=== PATIENT | male | born 1930 | race Caucasian/White ===

== ENCOUNTER 2019-06-18 01:40 | Emergency (ER) | payer MEDICARE, SELFPAY ==
[2019-06-18 02:54] LABS: CKMB 2.9 ng/mL (0-6.6)
== END 2019-06-18 03:35 | disposition short-term general hospital (02) ==
LOC: NAV ERS 01:40
DX: I50.1 Left ventricular failure, unspecified (principal); E87.1 Hypo-osmolality and hyponatremia; Z79.899 Other long term (current) drug therapy; Z79.82 Long term (current) use of aspirin
CPT/HCPCS: 82553; 84484; 94660; 94760; 96374; 99292

== ENCOUNTER 2019-06-21 16:43 | Inpatient (IN) | payer MEDICARE, OTHER ==
[2019-06-21] MEDS ORDERED: Mag-Al Plus 1200 MG/1200 MG/120 MG/30 ML UDCUP PO PRN (20:29)
[2019-06-21] MEDS ORDERED: Cepastat Lozenges 1 LOZ PO PRN (20:30)
[2019-06-21] MEDS ORDERED: Milk Of Magnesia 30 ML UDCUP PO PRN (20:33)
[2019-06-21] MEDS: Melatonin 3 MG TAB PO SCH (20:53)
[2019-06-21] MEDS: Simvastatin 40 MG TAB PO SCH (20:54)
[2019-06-21] MEDS: Metoprolol Tartrate 50 MG TAB PO SCH (20:54)
[2019-06-22] MEDS ORDERED: FLU VACC QS2019-20(6MOS UP)/PF 60 MCG/0.5 ML SYRINGE IM ONE (09:00)
[2019-06-22] MEDS: Aspirin 81 mg Enteric Coated Tablet PO SCH (09:03)
[2019-06-22] MEDS: Calcium Carbonate 500 MG TAB PO SCH (09:03)
[2019-06-22] MEDS: Clopidogrel Bisulfate 75 MG TAB PO SCH (09:03)
[2019-06-22] MEDS: Tamsulosin HCl 0.4 MG CAP PO SCH (09:03)
[2019-06-22] MEDS: Allopurinol 100 MG TAB PO SCH (09:03)
[2019-06-22] MEDS: Lactobacillus Rhamnosus (CULTURELLE) packet PO SCH (09:03)
[2019-06-22] MEDS: Metoprolol Tartrate 50 MG TAB PO SCH ×2 (09:03→20:12)
[2019-06-22] MEDS: Acetaminophen 500 MG TAB PO PRN (09:03)
[2019-06-22] MEDS: Simvastatin 40 MG TAB PO SCH (20:12)
[2019-06-22] MEDS: Melatonin 3 MG TAB PO SCH (20:12)
[2019-06-22] MEDS ORDERED: Ipratropium Bromide 2.5 ml Neb NEB PRN (20:36)
[2019-06-22] MEDS: Lorazepam 0.5 MG TAB PO PRN (21:54)
--- NOTE | 2019-06-23 03:02 | HP ---
HISTORY OF PRESENT ILLNESS: Mr. Andrew is a very pleasant 89-year-old white male, with history of coronary artery disease, status post CABG in 1999, he had a normal ejection fraction at that time. He also has a history of hypertension, chronic hyponatremia, and SIADH. Unfortunately, he fell and was admitted to [facility] for lumbar compression fracture and rhabdomyolysis. It stabilized and transferred to [facility]. He did not do very well there and was transferred back to [facility], was found to have significant GERD, which gave him chest pain. It was controlled with proton pump inhibitors and then he was transferred to [facility]. He was transferred here for physical therapy and occupational therapy to increase his strength and stamina. Prior to being discharged, he had a 2D echo with normal left ventricular systolic function, but the MRI revealed a significant compression fracture at L2. PAST MEDICAL HISTORY: 1. Coronary artery disease, status post CABG in 1999. 2. Gastroesophageal reflux disease. 3. Hyperlipidemia. 4. Hyperuricemia. 5. Mitral regurgitation. 6. 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 7. Coronary artery bypass graft in 1999. 8. Benign prostatic hyperplasia. PAST SURGICAL HISTORY: Tonsillectomy. FAMILY HISTORY: Positive for dementia. SOCIAL HISTORY: This patient lives alone and he is . He does not drink any alcohol and has not smoked in greater than 50 years. ALLERGIES: HE HAS NO KNOWN MEDICAL ALLERGIES. PRESENT MEDICATIONS: Include the following; 1. Tylenol 500 mg q.6 p.r.n. 2. Maalox p.r.n. 3. Allopurinol 300 mg daily. 4. Aspirin 81 mg daily. 5. Calcium carbonate 600 mg q.a.m. with meals. 6. Plavix 75 mg a day. 7. Lasix 40 mg daily. 8. Atrovent nebulizers q.6 hours p.r.n. 9. Lactobacillus rhamnosus one each day. 10. Ativan 0.5 q.4 hours p.r.n. anxiety. 11. Magnesium hydroxide, which is milk of magnesia 30 mL daily. 12. Metoprolol 50 mg b.i.d. 13. Pantoprazole, which is Protonix 40 mg daily. 14. Simvastatin 80 mg at bedtime. 15. Tamsulosin 0.4 mg daily. 16. Cepastat lozenges. 17. Lexapro 10 mg daily. REVIEW OF SYSTEMS: CONSTITUTIONAL: The patient denies any fever, chills, or night sweats. HEENT: He denies any changes in vision or hearing. RESPIRATORY: The patient denies any cough, cold, congestion, wheezes, or shortness of breath. CARDIOVASCULAR: The patient denies any chest pain, palpitations, rapid or slow heart beats or irregular heartbeats. : The patient denies frequency, urgency, dysuria, hematuria, or nocturia. ABDOMEN: The patient denies abdominal pain, CVA tenderness, bloating, constipation, or diarrhea. NEUROLOGIC: The patient denies any focal weaknesses in his arms, or extremities, but has significant weakness and balance problems. PHYSICAL EXAMINATION: VITAL SIGNS: Reveal blood pressure this morning was 149/70, pulse 81 to 77, respirations 20 to 22, O2 saturation 93% to 96% on room air, T-max 98.1. GENERAL: This is a well-developed, well-nourished white male, in no apparent distress at this time. HEENT: Reveals a normocephalic and nontraumatic cranium. The pupils are equally round and reactive. Extraocular movements are intact. Nose and throat are slightly dry. NECK: Supple without masses, nodes, or bruits. No jugular venous distention is noted. LUNGS: Clear to auscultation. No rales, rhonchi, wheezes, or cough is noted. HEART: Reveals a regular rate and rhythm without murmurs, gallops, or rubs. ABDOMEN: Soft, nontender without organomegaly. Normal bowel sounds are noted in all 4 quadrants. No rebound or guarding is noted. : Deferred. EXTREMITIES: Reveal no clubbing, cyanosis, or edema today. ASSESSMENT: 1. Recent discharge to [facility] with flash pulmonary edema. 2. Syndrome of inappropriate antidiuretic hormone secretion. 3. L2 compression fracture with TLSO brace that he is supposed to wear any time he is sitting upright or out of bed. 4. Chronic back pain. 5. Coronary artery disease. 6. Benign prostatic hyperplasia. 7. Recent flash pulmonary edema, requiring [place] and transferred to [facility]. 8. Generalized weakness. PLAN: 1. Continue fluid restrictions 1000 mL a day. 2. Lasix 40 mg daily. 3. Continue to wear TLSO brace. 4. Continue proton pump inhibitors. 5. Continue present medications. 6. Stress ulcer prophylaxis. 7. Decubitus precautions. 8. Encourage the patient to continue to eat well. 9. Continue physical therapy and occupational therapy. Job ID: [id number]
[2019-06-23] MEDS: Clopidogrel Bisulfate 75 MG TAB PO SCH (08:06)
[2019-06-23] MEDS: Aspirin 81 mg Enteric Coated Tablet PO SCH (08:06)
[2019-06-23] MEDS: Tamsulosin HCl 0.4 MG CAP PO SCH (08:06)
[2019-06-23] MEDS: Allopurinol 100 MG TAB PO SCH (08:06)
[2019-06-23] MEDS: Calcium Carbonate 500 MG TAB PO SCH (08:07)
[2019-06-23] MEDS: Furosemide 40 MG TAB PO SCH (08:08)
[2019-06-23] MEDS: Lactobacillus Rhamnosus (CULTURELLE) packet PO SCH (08:08)
[2019-06-23] MEDS: Metoprolol Tartrate 50 MG TAB PO SCH ×2 (08:08→20:21)
[2019-06-23 15:20] LABS: Anion Gap 14 mmol/L (10-20); BUN (Urea Nitrogen) 17 mg/dL (8.4-25.7); Calc. Creatinine Clearance 71 mL/min (70-130); Calcium 8.7 mg/dL (7.8-10.44); Carbon Dioxide 24 mmol/L (23-31); Chloride 89 mmol/L (98-107); Estimated GFR-MDRD Greater than 90; Glucose 142 mg/dL (83-110); Potassium 3.9 mmol/L (3.5-5.1); Sodium 123 mmol/L (136-145)
[2019-06-23 16:15] LABS: Hemoglobin 10.3 g/dL (14.0-18.0); Red Blood Cell (RBC) Count 3.46 mill/uL (4.70-6.10); White Blood Cell (WBC) Count 6.2 thou/uL (4.8-10.8)
[2019-06-23 16:16] LABS: #Eosinphils 0.2 thou/uL (0.0-0.7); #Lymphocytes 0.7 thou/uL (1.20-3.40); #Monocytes 0.5 thou/uL (0.11-0.59); #Neutrophils 4.7 thou/uL (1.40-6.50); %Eosinophils 2.9 % (0.0-10.0); %Lymphocytes 11.9 % (21.0-51.0); %Monocytes 8.5 % (0.0-10.0); %Neutrophils 75.7 % (42.0-75.0); Mean Corpuscular HGB CONC 34.3 g/dL (32.0-36.0); Mean Corpuscular Hemoglobin 29.8 pg (27.0-31.0); Mean Corpuscular Volume 86.7 fL (78.0-98.0); Mean Platelet Volume 6.6 fL (7.4-10.4); Platelet Count 302 thou/uL (130-400); RBC Distribution Width 12.2 % (11.5-14.5)
[2019-06-23 16:17] LABS: #Basophils 0.1 thou/uL (0.0-0.2)
[2019-06-23] MEDS: Acetaminophen 500 MG TAB PO PRN (17:12)
[2019-06-23] MEDS: Simvastatin 40 MG TAB PO SCH (20:20)
[2019-06-23] MEDS: Melatonin 3 MG TAB PO SCH (20:21)
[2019-06-24] MEDS: Furosemide 40 MG TAB PO SCH (08:36)
[2019-06-24] MEDS: Allopurinol 100 MG TAB PO SCH (08:38)
[2019-06-24] MEDS: Calcium Carbonate 500 MG TAB PO SCH (08:39)
[2019-06-24] MEDS: Tamsulosin HCl 0.4 MG CAP PO SCH (08:39)
[2019-06-24] MEDS: Metoprolol Tartrate 50 MG TAB PO SCH ×2 (08:40→20:27)
[2019-06-24] MEDS: Clopidogrel Bisulfate 75 MG TAB PO SCH (08:41)
[2019-06-24] MEDS: Lactobacillus Rhamnosus (CULTURELLE) packet PO SCH (08:42)
[2019-06-24] MEDS: Aspirin 81 mg Enteric Coated Tablet PO SCH (08:42)
[2019-06-24] MEDS: Simvastatin 40 MG TAB PO SCH (20:26)
[2019-06-24] MEDS: Melatonin 3 MG TAB PO SCH (20:27)
[2019-06-24] MEDS: Acetaminophen 500 MG TAB PO PRN (20:27)
--- NOTE | 2019-06-25 06:41 | PRG ---
DATE OF SERVICE: 06/24/[address] Marco Nichols. SUBJECTIVE: The patient is lying in the bed, visiting with daughter. No complaints. He has had a history of coronary artery disease, status post coronary artery bypass graft in 1999, doing well until he fell and suffered a lumbar compression fracture and rhabdomyolysis with subsequent significant weakness, who was doing better in the [facility] when last week he had the acute onset of flash pulmonary edema, requiring recent admission to [facility] again for IV diuresis. Since that time, he has been on fluid restriction and furosemide and has been doing well with no dyspnea at rest and has been cooperating with therapy. At this time, he has no complaints of shortness of breath or chest pain. OBJECTIVE: VITAL SIGNS: His temperature is 97.8; pulse 84; respirations 20; O2 saturations 95% on room air; and blood pressure is fluctuating down to 91/53 this afternoon as it was yesterday afternoon, but back up to 147/67 in the morning. LUNGS: At this time appear to be clear. CARDIAC: Showed regular rhythm. ABDOMEN: Soft and nontender. LABORATORY DATA: Laboratories yesterday showed hematocrit of 30, hemoglobin 10, and white count of 6200. BNP was elevated to 646. Sodium chronically low secondary to his chronic SIADH at 123, potassium is 3.9, BUN 17, and creatinine 0.726. ASSESSMENT: 1. Resolving deconditioning cooperating with therapy. 2. Chronic syndrome of inappropriate antidiuretic hormone secretion with hyponatremia, stable, asymptomatic. 3. Coronary artery disease with recent flash pulmonary edema, elevated BNP, now on fluid restriction and furosemide with no symptoms at rest and with basement profile to be done tomorrow and BNP to be repeated tomorrow. 4. History of rhabdomyolysis, resolved. PLAN: 1. Continue furosemide, fluid restriction. 2. BMP, BNP tomorrow. 3. Restart PT and OT on Wednesday. Job ID: [id number]
[2019-06-25 07:40] LABS: Anion Gap 14 mmol/L (10-20); BUN (Urea Nitrogen) 16 mg/dL (8.4-25.7); Calc. Creatinine Clearance 79 mL/min (70-130); Calcium 8.6 mg/dL (7.8-10.44); Carbon Dioxide 24 mmol/L (23-31); Chloride 91 mmol/L (98-107); Estimated GFR-MDRD Greater than 90; Glucose 106 mg/dL (83-110); Potassium 3.6 mmol/L (3.5-5.1); Sodium 125 mmol/L (136-145)
[2019-06-25] MEDS: Calcium Carbonate 500 MG TAB PO SCH (08:06)
[2019-06-25] MEDS: Furosemide 40 MG TAB PO SCH (08:07)
[2019-06-25] MEDS: Metoprolol Tartrate 50 MG TAB PO SCH ×2 (08:07→20:12)
[2019-06-25] MEDS: Tamsulosin HCl 0.4 MG CAP PO SCH (08:07)
[2019-06-25] MEDS: Clopidogrel Bisulfate 75 MG TAB PO SCH (08:07)
[2019-06-25] MEDS: Allopurinol 100 MG TAB PO SCH (08:07)
[2019-06-25] MEDS: Aspirin 81 mg Enteric Coated Tablet PO SCH (08:07)
[2019-06-25] MEDS ORDERED: Lactinex Tablet PO SCH (10:30)
[2019-06-25] MEDS: Lactobacillus Rhamnosus (CULTURELLE) packet PO SCH (10:41)
[2019-06-25] MEDS: Melatonin 3 MG TAB PO SCH (20:12)
[2019-06-25] MEDS: Acetaminophen 500 MG TAB PO PRN (20:12)
[2019-06-25] MEDS: Simvastatin 40 MG TAB PO SCH (20:12)
[2019-06-26] MEDS: Calcium Carbonate 500 MG TAB PO SCH (08:21)
[2019-06-26] MEDS: Clopidogrel Bisulfate 75 MG TAB PO SCH (08:23)
[2019-06-26] MEDS: Allopurinol 100 MG TAB PO SCH (08:23)
[2019-06-26] MEDS: Aspirin 81 mg Enteric Coated Tablet PO SCH (08:23)
[2019-06-26] MEDS: Furosemide 40 MG TAB PO SCH (08:23)
[2019-06-26] MEDS: Tamsulosin HCl 0.4 MG CAP PO SCH (08:23)
[2019-06-26] MEDS: Lactinex Tablet PO SCH (08:23)
[2019-06-26] MEDS: Metoprolol Tartrate 50 MG TAB PO SCH ×2 (08:23→20:40)
--- NOTE | 2019-06-26 16:38 | PRG ---
DATE OF SERVICE: 06/26/2019 SUBJECTIVE: Mr. Andrew is a well-developed, well-nourished 89-year-old white male, with a history of CAD, post CABG in 1999. He unfortunately had a lumbar compression fracture and rhabdomyolysis after falling. He is admitted at [facility]. Eventually, stabilized and [facility] Unfortunately, he had chest pain, was transferred back to [facility] and found to have GERD. At that time, he was treated with proton pump inhibitors and then transferred to [facility] for increased physical therapy and occupational therapy. He has done well here. He had a 2D echo, which is normal left ventricular systolic function, but MRI reveals significant compression fracture at L2. Today, the patient states he is doing well, but he is not eating as well. He does not really like the food and he is on a fluid-restricted diet of 1200 mL. OBJECTIVE: VITAL SIGNS: Today reveal blood pressure 138/74, pulse 79, respirations 20, O2 saturation 94% on room air, T-max 97.3. GENERAL: This is a well-developed, well-nourished, pleasant 89-year-old white male, in no apparent distress at this time. HEENT: Normocephalic and nontraumatic cranium. Pupils are equally round and reactive. Extraocular movements are intact. Nose and throat are slightly dry. NECK: Supple without masses, nodes, or bruits. CHEST: Clear to auscultation. No rales, rhonchi, or wheezes are heard. HEART: Reveals a regular rate and rhythm without murmurs, gallops, or rubs. ABDOMEN: Soft, nontender without organomegaly. Normal bowel sounds are noted. No rebound or guarding is noted. : Deferred. EXTREMITIES: Reveal no clubbing, cyanosis, or edema. ASSESSMENT: 1. Chronic syndrome of inappropriate ADH with his last sodium was noted to be 125 yesterday. BUN was 16, creatinine was 0.64. 2. Coronary artery disease with recent flash pulmonary edema, elevated BNP, now on furosemide with restricted fluids. 3. The patient has no symptoms flash pulmonary edema. 4. History of rhabdomyolysis, which is resolved. 5. Hyperlipidemia. 6. Hyperuricemia. 7. Mitral regurgitation. 8. Benign prostatic hyperplasia. 9. Generalized weakness. 10. L2 compression fracture with TLSO brace while he is out of bed and chronic back pain. PLAN: 1. Continue fluid restrictions of 1200 mL a day. 2. Lasix 40 mg a day. 3. Continue to wear TLSO brace when out of bed. 4. Continue proton pump inhibitors. 5. Continue present medications. 6. Stress ulcer prophylaxis. 7. Decubitus precautions. 8. Encourage the patient to eat. 9. Continue physical therapy and occupational therapy. Job ID: [id number]
[2019-06-26] MEDS: Acetaminophen 500 MG TAB PO PRN (20:40)
[2019-06-26] MEDS: Melatonin 3 MG TAB PO SCH (20:40)
[2019-06-26] MEDS: Simvastatin 40 MG TAB PO SCH (20:40)
[2019-06-27] MEDS: Acetaminophen 500 MG TAB PO PRN ×2 (01:43→20:46)
[2019-06-27] MEDS: Calcium Carbonate 500 MG TAB PO SCH (07:45)
[2019-06-27] MEDS: Furosemide 40 MG TAB PO SCH (07:47)
[2019-06-27] MEDS: Clopidogrel Bisulfate 75 MG TAB PO SCH (09:44)
[2019-06-27] MEDS: Allopurinol 100 MG TAB PO SCH (09:44)
[2019-06-27] MEDS: Aspirin 81 mg Enteric Coated Tablet PO SCH (09:44)
[2019-06-27] MEDS: Metoprolol Tartrate 50 MG TAB PO SCH ×2 (09:44→20:45)
[2019-06-27] MEDS: Lactinex Tablet PO SCH (09:44)
[2019-06-27] MEDS: Tamsulosin HCl 0.4 MG CAP PO SCH (09:44)
--- NOTE | 2019-06-27 13:42 | PRG ---
DATE OF SERVICE: 06/27/2019 SUBJECTIVE: Mr. Andrew is doing well except tired. He denies any concerns or questions. No family at bedside discussed with nursing. OBJECTIVE: VITAL SIGNS: He is afebrile, heart rate 75, respirations 18, oxygen saturation 95% on room air, and blood pressure 153/70. CARDIOVASCULAR SYSTEM: S1 and S2 plus. RESPIRATORY SYSTEM: Normal vesicular breath sounds. ABDOMEN: Soft and nontender. Bowel sounds heard in all quadrants. EXTREMITIES: Without cyanosis or clubbing. CENTRAL NERVOUS SYSTEM: Awake and responsive. Generalized weakness. IMPRESSION: 1. Coronary artery disease with resolved flash pulmonary edema. 2. Dyslipidemia. 3. Syndrome of inappropriate antidiuretic hormone secretion. 4. Lumbar spine compression fracture. 5. Benign prostatic hyperplasia. 6. Deconditioning. PLAN: 1. Continue current medications. 2. Heart healthy diet with fluid restriction. 3. Spinal precautions and TLSO brace. 4. Decubitus precautions. 5. Stress ulcer prophylaxis. 6. DVT prophylaxis. 7. Physical Therapy. 8. Routine laboratory values. Job ID: [id number]
[2019-06-27] MEDS: Simvastatin 40 MG TAB PO SCH (20:45)
[2019-06-27] MEDS: Melatonin 3 MG TAB PO SCH (20:45)
[2019-06-28] MEDS: Lorazepam 0.5 MG TAB PO PRN (01:42)
[2019-06-28] MEDS: Furosemide 40 MG TAB PO SCH (08:15)
[2019-06-28] MEDS: Clopidogrel Bisulfate 75 MG TAB PO SCH (08:15)
[2019-06-28] MEDS: Calcium Carbonate 500 MG TAB PO SCH (08:15)
[2019-06-28] MEDS: Aspirin 81 mg Enteric Coated Tablet PO SCH (08:15)
[2019-06-28] MEDS: Allopurinol 100 MG TAB PO SCH (08:16)
[2019-06-28] MEDS: Metoprolol Tartrate 50 MG TAB PO SCH ×2 (08:17→20:24)
[2019-06-28] MEDS: Lactinex Tablet PO SCH (08:17)
[2019-06-28] MEDS: Tamsulosin HCl 0.4 MG CAP PO SCH (08:18)
[2019-06-28] MEDS: Acetaminophen 500 MG TAB PO PRN (10:53)
--- NOTE | 2019-06-28 16:36 | PRG ---
DATE OF SERVICE: 06/28/2019 SUBJECTIVE: Mr. Andrew is walking in the hallways with the assistance of nursing. He is happy with his progress. He denies any chest pain or shortness of breath. No family at bedside. OBJECTIVE: VITAL SIGNS: He is afebrile, heart rate 64, respirations 18, oxygen saturation 97% on room air, blood pressure 158/70. CARDIOVASCULAR SYSTEM: S1 and S2 plus. RESPIRATORY SYSTEM: Normal vesicular breath sounds. ABDOMEN: Soft and nontender. Bowel sounds heard in all quadrants. EXTREMITIES: Without cyanosis or clubbing. CENTRAL NERVOUS SYSTEM: Awake and responsive. Cranial nerves 2 through 12 intact. Generalized weakness otherwise nonfocal. IMPRESSION: 1. Coronary artery disease. 2. Syndrome of inappropriate antidiuretic hormone secretion. 3. Hypertension. 4. Lumbar spine compression fracture. 5. Gastroesophageal reflux disease. 6. Benign prostatic hypertrophy. 7. Improving deconditioning. PLAN: 1. Continue current medications. 2. Heart healthy diet. 3. Monitor blood pressure and adjust medications as needed. 4. Spinal precautions with TLSO brace. 5. Physical therapy. 6. Routine laboratory values. 7. Discussed with the patient in detail. All questions answered. Job ID: [id number]
[2019-06-28] MEDS: Melatonin 3 MG TAB PO SCH (20:24)
[2019-06-28] MEDS: Simvastatin 40 MG TAB PO SCH (20:24)
[2019-06-29] MEDS: Acetaminophen 500 MG TAB PO PRN (03:40)
[2019-06-29] MEDS: Furosemide 40 MG TAB PO SCH (07:56)
[2019-06-29] MEDS: Calcium Carbonate 500 MG TAB PO SCH (07:56)
[2019-06-29] MEDS: Allopurinol 100 MG TAB PO SCH (07:57)
[2019-06-29] MEDS: Aspirin 81 mg Enteric Coated Tablet PO SCH (07:58)
[2019-06-29] MEDS: Lactinex Tablet PO SCH (07:58)
[2019-06-29] MEDS: Tamsulosin HCl 0.4 MG CAP PO SCH (07:58)
[2019-06-29] MEDS: Clopidogrel Bisulfate 75 MG TAB PO SCH (07:58)
[2019-06-29] MEDS: Metoprolol Tartrate 50 MG TAB PO SCH ×2 (07:58→20:32)
--- NOTE | 2019-06-29 13:08 | PRG ---
DATE OF SERVICE: 06/29/2019 SUBJECTIVE: Mr. Andrew is sleeping, but arousable. He denies any questions or concerns. No family at bedside, discussed with nursing. OBJECTIVE: VITAL SIGNS: He is afebrile, heart rate 77, respirations 18, oxygen saturation 94% on room air, and blood pressure 134/63. CARDIOVASCULAR SYSTEM: S1 and S2 plus. RESPIRATORY SYSTEM: Normal vesicular breath sounds. ABDOMEN: Soft and nontender. Bowel sounds heard in all quadrants. EXTREMITIES: Without cyanosis or clubbing. CENTRAL NERVOUS SYSTEM: Awake and responsive. Cranial nerves 2 through 12 intact. Grossly nonfocal. IMPRESSION: 1. Coronary artery disease. 2. Chronic hyponatremia due to syndrome of inappropriate antidiuretic hormone secretion. 3. Hypertension. 4. Lumbar spine compression fracture. 5. Gastroesophageal reflux disease. 6. Benign prostatic hypertrophy. 7. Improving deconditioning. PLAN: 1. Continue current medications. 2. Heart healthy diet. 3. Spinal precautions with TLSO brace. 4. Monitor blood pressure and adjust medications as needed. 5. Routine laboratory values. 6. Physical therapy. 7. Decubitus and stress ulcer prophylaxis. 8. Discussed with the patient. All questions answered. Job ID: [id number]
[2019-06-29] MEDS: Simvastatin 40 MG TAB PO SCH (20:31)
[2019-06-29] MEDS: Melatonin 3 MG TAB PO SCH (20:32)
[2019-06-30] MEDS: Calcium Carbonate 500 MG TAB PO SCH (08:23)
[2019-06-30] MEDS: Clopidogrel Bisulfate 75 MG TAB PO SCH (08:23)
[2019-06-30] MEDS: Metoprolol Tartrate 50 MG TAB PO SCH ×2 (08:23→20:27)
[2019-06-30] MEDS: Furosemide 40 MG TAB PO SCH (08:24)
[2019-06-30] MEDS: Aspirin 81 mg Enteric Coated Tablet PO SCH (08:25)
[2019-06-30] MEDS: Lactinex Tablet PO SCH (08:25)
[2019-06-30] MEDS: Allopurinol 100 MG TAB PO SCH (08:25)
[2019-06-30] MEDS: Tamsulosin HCl 0.4 MG CAP PO SCH (08:25)
[2019-06-30] MEDS: Acetaminophen 500 MG TAB PO PRN (08:25)
--- NOTE | 2019-06-30 08:42 | PRG ---
DATE OF SERVICE: 06/30/2019 SUBJECTIVE: Mr. Andrew states he did not sleep well and so was tired. He apparently gets melatonin, but it is not helping. We will try trazodone tonight. No other concerns or questions. OBJECTIVE: VITAL SIGNS: He is afebrile, heart rate 80, respirations 18, oxygen saturation 93% on room air, and blood pressure 138/64. CARDIOVASCULAR: S1 and S2 plus. RESPIRATORY: Normal vesicular breath sounds. ABDOMEN: Soft and nontender. Bowel sounds heard in all quadrants. EXTREMITIES: Without cyanosis or clubbing. CENTRAL NERVOUS SYSTEM: Awake and responsive. Generalized weakness. IMPRESSION: 1. Syndrome of inappropriate antidiuretic hormone secretion with chronic hyponatremia. 2. Lumbar spine compression fracture. 3. Coronary artery disease. 4. Dyslipidemia. 5. Benign prostatic hyperplasia. 6. Osteoarthritis. 7. Deconditioning. 8. Insomnia. PLAN: 1. Continue current medications. 2. Actually, we will try melatonin 10 mg today, and if that does not help, we will start trazodone tomorrow. 3. Heart healthy diet. 4. Spinal precautions. 5. DVT and stress ulcer prophylaxis. 6. Decubitus precaution. 7. Physical therapy. 8. Routine laboratory values. Job ID: [id number]
[2019-06-30] MEDS: Simvastatin 40 MG TAB PO SCH (20:27)
[2019-06-30] MEDS: Melatonin 3 MG TAB PO SCH (20:27)
[2019-07-01] MEDS: Tamsulosin HCl 0.4 MG CAP PO SCH (08:17)
[2019-07-01] MEDS: Allopurinol 100 MG TAB PO SCH (08:17)
[2019-07-01] MEDS: Lactinex Tablet PO SCH (08:18)
[2019-07-01] MEDS: Calcium Carbonate 500 MG TAB PO SCH (08:18)
[2019-07-01] MEDS: Metoprolol Tartrate 50 MG TAB PO SCH ×2 (08:18→20:33)
[2019-07-01] MEDS: Aspirin 81 mg Enteric Coated Tablet PO SCH (08:18)
[2019-07-01] MEDS: Furosemide 40 MG TAB PO SCH (08:18)
[2019-07-01] MEDS: Lorazepam 0.5 MG TAB PO PRN (08:18)
[2019-07-01] MEDS: Clopidogrel Bisulfate 75 MG TAB PO SCH (08:18)
--- NOTE | 2019-07-01 14:39 | PRG ---
DATE OF SERVICE: 07/01/2019 SUBJECTIVE: Mr. Andrew is doing well. Denies any complaints other than still apparently not sleeping well. He apparently dozes off in the afternoon. I advised him that he should try to stay awake in the afternoon, so he can get some sleep and to try that today and if he still has issues, then we will change his sleeping pill. His family in the room. All questions answered. OBJECTIVE: VITAL SIGNS: He is afebrile. Heart rate 79, respirations 19, oxygen saturation 98% on room air, blood pressure 138/64. CARDIOVASCULAR: S1-S2 plus. RESPIRATORY: Normal vesicular breath sounds. ABDOMEN: Soft, nontender, bowel sounds heard in all quadrants. EXTREMITIES: Without cyanosis or clubbing. CENTRAL NERVOUS SYSTEM: Generalized weakness, otherwise nonfocal. IMPRESSION: 1. Compression fracture of the lumbar spine. 2. Syndrome of inappropriate antidiuretic hormone secretion with chronic hyponatremia. 3. Coronary artery disease. 4. Dyslipidemia. 5. Benign prostatic hypertrophy. 6. Osteoarthritis. 7. Improving deconditioning. 8. Insomnia. PLAN: 1. Continue current medications. 2. Try to stay awake in the afternoon. 3. Spinal precautions. 4. Heart healthy diet. 5. Deep venous thrombosis and stress ulcer prophylaxis. 6. Physical therapy. 7. Routine laboratory values. Job ID: [id number]
[2019-07-01] MEDS: Simvastatin 40 MG TAB PO SCH (20:32)
[2019-07-01] MEDS: Melatonin 3 MG TAB PO SCH (20:33)
[2019-07-02] MEDS: Allopurinol 100 MG TAB PO SCH (09:07)
[2019-07-02] MEDS: Calcium Carbonate 500 MG TAB PO SCH (09:08)
[2019-07-02] MEDS: Clopidogrel Bisulfate 75 MG TAB PO SCH (09:08)
[2019-07-02] MEDS: Tamsulosin HCl 0.4 MG CAP PO SCH (09:08)
[2019-07-02] MEDS: Lactinex Tablet PO SCH (09:08)
[2019-07-02] MEDS: Furosemide 40 MG TAB PO SCH (09:09)
[2019-07-02] MEDS: Aspirin 81 mg Enteric Coated Tablet PO SCH (09:09)
[2019-07-02] MEDS: Metoprolol Tartrate 50 MG TAB PO SCH ×2 (09:09→20:35)
--- NOTE | 2019-07-02 15:06 | PRG ---
DATE OF SERVICE: 07/02/2019 SUBJECTIVE: Mr. Andrew just finished his lunch. He is dozing off in bed. Denies any questions or concerns. He is hoping to go for a walk later this afternoon with the help of nurses. No family at bedside. OBJECTIVE: VITAL SIGNS: He is afebrile, heart rate 78, respirations 18, oxygen saturation 95% on room air, blood pressure 119/62. CARDIOVASCULAR: S1 and S2 plus. RESPIRATORY: Normal vesicular breath sounds. ABDOMEN: Soft and nontender. Bowel sounds heard in all quadrants. EXTREMITIES: Without cyanosis or clubbing. CENTRAL NERVOUS SYSTEM: Grossly nonfocal. IMPRESSION: 1. Lumbar spine compression fracture. 2. Syndrome of inappropriate antidiuretic hormone secretion with chronic hyponatremia. 3. Coronary artery disease. 4. Dyslipidemia. 5. Benign prostatic hypertrophy. 6. Osteoarthritis. 7. Improving deconditioning. PLAN: 1. Continue current medications. 2. Heart-healthy diet. 3. Spinal precautions. 4. Physical therapy. 5. DVT and stress ulcer prophylaxis. 6. Routine laboratory values. 7. Dr. Magdalena sagastume. Job ID: [id number]
[2019-07-02] MEDS: Melatonin 3 MG TAB PO SCH (20:35)
[2019-07-02] MEDS: Simvastatin 40 MG TAB PO SCH (20:35)
[2019-07-02] MEDS: Acetaminophen 500 MG TAB PO PRN (20:38)
[2019-07-03] MEDS: Allopurinol 100 MG TAB PO SCH (08:51)
[2019-07-03] MEDS: Tamsulosin HCl 0.4 MG CAP PO SCH (08:52)
[2019-07-03] MEDS: Furosemide 40 MG TAB PO SCH (08:52)
[2019-07-03] MEDS: Metoprolol Tartrate 50 MG TAB PO SCH ×2 (08:52→20:18)
[2019-07-03] MEDS: Aspirin 81 mg Enteric Coated Tablet PO SCH (08:52)
[2019-07-03] MEDS: Lactinex Tablet PO SCH (08:52)
[2019-07-03] MEDS: Calcium Carbonate 500 MG TAB PO SCH (08:52)
[2019-07-03] MEDS: Clopidogrel Bisulfate 75 MG TAB PO SCH (08:52)
[2019-07-03] MEDS: Melatonin 3 MG TAB PO SCH (20:18)
[2019-07-03] MEDS: Simvastatin 40 MG TAB PO SCH (20:18)
--- NOTE | 2019-07-03 21:15 | PRG ---
DATE OF SERVICE: 07/03/2019 SUBJECTIVE: Mr. Andrew is a very pleasant 89-year-old white male with a history of coronary artery disease, status post CABG in 1999. Unfortunately, he had a lumbar compression fracture and rhabdomyolysis after falling. He was admitted to [facility], where he stabilized and transferred to [facility]. He had chest pain, was transferred back to [facility] and found to have significant GERD. At that time, he was transferred with proton pump inhibitors and transferred to [facility] for increased physical therapy and occupational therapy. He has actually done very well and is gradually getting better. He states he had a really big work out after he walked down to the gym, which completely exhausted him. He is back in his room, sitting up in a chair, trying to recover. He did have a previous 2D echo, which is normal and left ventricular systolic function, but MRI reveals significant compression fractures of L2. Today, the patient states he is doing well, but he still has a very poor appetite. He remains on a fluid-restricted diet of 2000 mL. OBJECTIVE: VITAL SIGNS: Today reveal blood pressure this morning 137/62, pulse 64 to 85, respirations 18 to 20, O2 saturation 96% on room air, T-max 98.2. GENERAL: This is a well-developed, well-nourished, very pleasant, thin white male, in no apparent distress at this time. He states his pain is gradually getting better. HEENT: Reveals normocephalic, nontraumatic cranium. Pupils are equal, round, and reactive. Extraocular movements are intact. Nose and throat are moist today. NECK: Supple without masses, nodes, or bruits. CHEST: Clear to auscultation. No rales, rhonchi, or wheezes are noted. HEART: Reveals a regular rate and rhythm without murmurs, gallops, or rubs. ABDOMEN: Scaphoid, soft, nontender without organomegaly. Normal bowel sounds are noted in all 4 quadrants. No rebound or guarding is noted. GENITOURINARY: Deferred. EXTREMITIES: Revealed no clubbing, cyanosis, or edema. ASSESSMENT: 1. Chronic syndrome of inappropriate ADH with last sodium 125. 2. Coronary artery disease with recent flash pulmonary edema, elevated BNP, now on furosemide, restricted fluids. 3. History of rhabdomyolysis. 4. Recent burst compression fracture at L2. 5. Hyperlipidemia. 6. Hyperuricemia. 7. Mitral regurgitation. 8. Benign prostatic hyperplasia. 9. Generalized weakness. PLAN: 1. Continue to wear TLSO brace anytime he is out of bed. 2. Continue fluid restriction of 1200 mL. 3. Lasix 40 a day. 4. Continue proton pump inhibitors. 5. Continue present medications. 6. Stress ulcer prophylaxis. 7. Decubitus precautions. 8. Encourage the patient to eat. 9. Continue PT and OT. Job ID: [id number]
[2019-07-04 05:19] LABS: #Basophils 0.1 thou/uL (0.0-0.2); #Eosinphils 0.2 thou/uL (0.0-0.7); #Lymphocytes 0.9 thou/uL (1.20-3.40); #Monocytes 0.5 thou/uL (0.11-0.59); #Neutrophils 3.5 thou/uL (1.40-6.50); %Basophils 2.1 % (0.0-1.0); %Eosinophils 4.3 % (0.0-10.0); %Monocytes 9.7 % (0.0-10.0); %Neutrophils 66.9 % (42.0-75.0); Hemoglobin 10.1 g/dL (14.0-18.0); Mean Corpuscular HGB CONC 32.6 g/dL (32.0-36.0); Mean Corpuscular Hemoglobin 28.5 pg (27.0-31.0); Mean Corpuscular Volume 87.2 fL (78.0-98.0); Platelet Count 295 thou/uL (130-400); RBC Distribution Width 11.8 % (11.5-14.5); Red Blood Cell (RBC) Count 3.54 mill/uL (4.70-6.10); White Blood Cell (WBC) Count 5.2 thou/uL (4.8-10.8)
[2019-07-04 05:34] LABS: ALT (SGPT) 13 U/L (8-55); AST (SGOT) 16 U/L (5-34); Albumin 3.6 g/dL (3.4-4.8); Alkaline Phosphatase 85 U/L (40-110); Anion Gap 13 mmol/L (10-20); BUN (Urea Nitrogen) 13 mg/dL (8.4-25.7); Bilirubin, Total 0.8 mg/dL (0.2-1.2); Calc. Creatinine Clearance 70 mL/min (70-130); Carbon Dioxide 24 mmol/L (23-31); Chloride 92 mmol/L (98-107); Estimated GFR-MDRD Greater than 90; Globulin 2.5 g/dL (2.4-3.5); Glucose 98 mg/dL (83-110); Protein, Total 6.1 g/dL (5.8-8.1); Sodium 125 mmol/L (136-145)
[2019-07-04] MEDS: Furosemide 40 MG TAB PO SCH (08:05)
[2019-07-04] MEDS: Allopurinol 100 MG TAB PO SCH (08:05)
[2019-07-04] MEDS: Calcium Carbonate 500 MG TAB PO SCH (08:05)
[2019-07-04] MEDS: Aspirin 81 mg Enteric Coated Tablet PO SCH (08:06)
[2019-07-04] MEDS: Lactinex Tablet PO SCH (08:06)
[2019-07-04] MEDS: Tamsulosin HCl 0.4 MG CAP PO SCH (08:06)
[2019-07-04] MEDS: Metoprolol Tartrate 50 MG TAB PO SCH ×2 (08:06→20:24)
[2019-07-04] MEDS: Clopidogrel Bisulfate 75 MG TAB PO SCH (08:06)
--- NOTE | 2019-07-04 15:54 | PRG ---
DATE OF SERVICE: 07/04/2019 SUBJECTIVE: Mr. Andrew is a well-developed, well-nourished, very pleasant 89-year-old, thin white male, who had a lumbar compression fracture, rhabdomyolysis after falling. He was admitted to [facility], stabilized and transferred to [facility] for therapy. He developed some chest pain, transferred back to [facility], and found to have significant GERD. He was transferred to [facility] for physical therapy and occupational therapy. He has done very well and is actually slowly getting stronger. He states he walked almost 2 laps around the track today in the hospital. OBJECTIVE: VITAL SIGNS: Today reveals blood pressure 110/55, pulse 75 to 85, respirations 18 to 20, O2 saturation 98% on room air, T-max 98.1. PHYSICAL EXAMINATION: GENERAL: This is a well-developed, well-nourished, very pleasant 89-year-old white male, in no apparent distress at this time. HEENT: Reveals normocephalic and nontraumatic cranium. Pupils are equally round and reactive. Extraocular movements are intact. Nose and throat are slightly dry, but clear. NECK: Supple without masses, nodes, or bruits. CHEST: Clear to auscultation. No rales, rhonchi, wheezes are noted. HEART: Reveals a regular rate and rhythm without murmurs, gallops, or rubs. ABDOMEN: Soft, nontender without organomegaly. No rebound or guarding is noted. : Deferred. EXTREMITIES: Reveal no clubbing, cyanosis, or edema. NEUROLOGIC: The patient is gradually getting stronger. ASSESSMENT: 1. Chronic syndrome of inappropriate antidiuretic hormone with last sodium done this morning was 125. 2. Coronary artery disease with previous flash pulmonary edema with a BNP down to 265 this morning. The patient is continued on restricted fluids 1200 mL and furosemide 40 a day. 3. Recent burst fracture at L2. 4. Hyperlipidemia. 5. Hyperuricemia. 6. Mitral regurgitation. 7. Benign prostatic hyperplasia. 8. Generalized weakness. PLAN: 1. Continue to encourage the patient to continue to wear his TLSO brace anytime he is out of bed. 2. Continue with fluid restrictions. 3. Continue Lasix 40 a day. 4. Continue present medications. 5. Stress ulcer prophylaxis. 6. Decubitus precautions. 7. Continue to encourage the patient to eat and we spoke about this at length today. 8. Continue physical therapy and occupational therapy. Job ID: [id number]
[2019-07-04] MEDS: Melatonin 3 MG TAB PO SCH (20:24)
[2019-07-04] MEDS: Simvastatin 40 MG TAB PO SCH (20:25)
[2019-07-05] MEDS: Lorazepam 0.5 MG TAB PO PRN (02:22)
[2019-07-05] MEDS: Calcium Carbonate 500 MG TAB PO SCH (08:52)
[2019-07-05] MEDS: Lactinex Tablet PO SCH (08:53)
[2019-07-05] MEDS: Tamsulosin HCl 0.4 MG CAP PO SCH (08:53)
[2019-07-05] MEDS: Furosemide 40 MG TAB PO SCH (08:53)
[2019-07-05] MEDS: Clopidogrel Bisulfate 75 MG TAB PO SCH (08:53)
[2019-07-05] MEDS: Allopurinol 100 MG TAB PO SCH (08:53)
[2019-07-05] MEDS: Metoprolol Tartrate 50 MG TAB PO SCH ×2 (08:54→20:25)
[2019-07-05] MEDS: Aspirin 81 mg Enteric Coated Tablet PO SCH (08:54)
--- NOTE | 2019-07-05 19:46 | PRG ---
DATE OF SERVICE: 07/05/2019 no complaints, enjoys his New Year's Day. No family is in the room. Nurses have no concerns. OBJECTIVE: VITAL SIGNS: Show temperature is 97, pulse 80, respirations 18, O2 sat is 94% on room air, and blood pressure 127/57. LABORATORY DATA: Recent laboratory yesterday showed a white count of 5200, hematocrit 30, and hemoglobin 10. BNP was improved to 265 from recent 645. Sodium is stable at 125, potassium 4.0, chloride 92, bicarb 24, BUN 13, creatinine 0.7. ALT 13, AST 16, and albumin 3.6 which is an improvement from 3.0 on admission. ASSESSMENT: 1. Improving congestive heart failure with decreased BNP. 2. Stable coronary artery disease, asymptomatic. 3. Stable syndrome of inappropriate antidiuretic hormone with sodium of 125. 4. Burst fracture of L2 with decreased pain. 5. Deconditioning, improving. PLAN: 1. Continue PT/OT. 2. Continue pain relief as needed. 3. Continue fluid restriction and Lasix 40 daily. 4. Continue to wear the TLSO brace when out of bed. Job ID: [id number]
[2019-07-05] MEDS: Simvastatin 40 MG TAB PO SCH (20:25)
[2019-07-05] MEDS: Acetaminophen 500 MG TAB PO PRN (20:25)
[2019-07-05] MEDS: Melatonin 3 MG TAB PO SCH (20:25)
[2019-07-06] MEDS: Lorazepam 0.5 MG TAB PO PRN (00:01)
[2019-07-06] MEDS: Clopidogrel Bisulfate 75 MG TAB PO SCH (08:54)
[2019-07-06] MEDS: Calcium Carbonate 500 MG TAB PO SCH (08:54)
[2019-07-06] MEDS: Lactinex Tablet PO SCH (08:59)
[2019-07-06] MEDS: Aspirin 81 mg Enteric Coated Tablet PO SCH (08:59)
[2019-07-06] MEDS: Allopurinol 100 MG TAB PO SCH (08:59)
[2019-07-06] MEDS: Tamsulosin HCl 0.4 MG CAP PO SCH (08:59)
[2019-07-06] MEDS: Metoprolol Tartrate 50 MG TAB PO SCH ×2 (08:59→20:34)
[2019-07-06] MEDS: Furosemide 40 MG TAB PO SCH (08:59)
[2019-07-06] MEDS: Simvastatin 40 MG TAB PO SCH (20:33)
[2019-07-06] MEDS: Melatonin 3 MG TAB PO SCH (20:33)
--- NOTE | 2019-07-06 21:36 | PRG ---
DATE OF SERVICE: 07/06/[address] Marco Nichols. SUBJECTIVE: The patient feels well, lying in bed, has been working with therapy. Denies any shortness of breath or chest pain. He states that his back pain is getting much better and is still wearing his brace. OBJECTIVE: VITAL SIGNS: Shows his temperature is 97.4, pulse 70, respirations 19, O2 sats 97% on room air. LUNGS: Clear. CARDIAC: Examination showed regular rhythm. ABDOMEN: Soft and nontender. BACK: Shows some tenderness to palpation of the mid lower back. ASSESSMENT: 1. Resolving burst fracture of L2. 2. Stable syndrome of inappropriate antidiuretic hormone. 3. Stable coronary artery disease, improving. 4. Congestive heart failure with decreased brain natriuretic peptide. 5. Benign prostatic hypertrophy, stable. 6. Deconditioning, improving. PLAN: 1. Continue PT/OT. 2. Continue TLSO brace. 3. Continue furosemide 40 daily and fluid restriction. 4. His congestive heart failure appears to be improving. Job ID: [id number]
[2019-07-07] MEDS: Lactinex Tablet PO SCH (08:34)
[2019-07-07] MEDS: Tamsulosin HCl 0.4 MG CAP PO SCH (08:35)
[2019-07-07] MEDS: Calcium Carbonate 500 MG TAB PO SCH (08:35)
[2019-07-07] MEDS: Furosemide 40 MG TAB PO SCH (08:35)
[2019-07-07] MEDS: Metoprolol Tartrate 50 MG TAB PO SCH ×2 (08:35→21:04)
[2019-07-07] MEDS: Aspirin 81 mg Enteric Coated Tablet PO SCH (08:35)
[2019-07-07] MEDS: Allopurinol 100 MG TAB PO SCH (08:35)
[2019-07-07] MEDS: Clopidogrel Bisulfate 75 MG TAB PO SCH (08:35)
[2019-07-07] MEDS: Simvastatin 40 MG TAB PO SCH (20:59)
[2019-07-07] MEDS: Melatonin 3 MG TAB PO SCH (21:04)
[2019-07-08] MEDS: Furosemide 40 MG TAB PO SCH (08:23)
[2019-07-08] MEDS: Aspirin 81 mg Enteric Coated Tablet PO SCH (08:24)
[2019-07-08] MEDS: Clopidogrel Bisulfate 75 MG TAB PO SCH (08:24)
[2019-07-08] MEDS: Calcium Carbonate 500 MG TAB PO SCH (08:24)
[2019-07-08] MEDS: Lactinex Tablet PO SCH (08:24)
[2019-07-08] MEDS: Allopurinol 100 MG TAB PO SCH (08:24)
[2019-07-08] MEDS: Metoprolol Tartrate 50 MG TAB PO SCH ×2 (08:24→20:52)
[2019-07-08] MEDS: Tamsulosin HCl 0.4 MG CAP PO SCH (08:25)
[2019-07-08] MEDS: Melatonin 3 MG TAB PO SCH (20:51)
[2019-07-08] MEDS: Simvastatin 40 MG TAB PO SCH (20:51)
[2019-07-09] MEDS: Calcium Carbonate 500 MG TAB PO SCH (08:43)
[2019-07-09] MEDS: Furosemide 40 MG TAB PO SCH (08:44)
[2019-07-09] MEDS: Tamsulosin HCl 0.4 MG CAP PO SCH (08:44)
[2019-07-09] MEDS: Clopidogrel Bisulfate 75 MG TAB PO SCH (08:44)
[2019-07-09] MEDS: Aspirin 81 mg Enteric Coated Tablet PO SCH (08:45)
[2019-07-09] MEDS: Metoprolol Tartrate 50 MG TAB PO SCH ×2 (08:45→20:32)
[2019-07-09] MEDS: Allopurinol 100 MG TAB PO SCH (08:45)
[2019-07-09] MEDS: Lactinex Tablet PO SCH (08:46)
--- NOTE | 2019-07-09 09:00 | PRG ---
DATE OF SERVICE: 07/07/2019 SUBJECTIVE: The patient feels well with no complaints, lying in bed, has been working with therapy, states that his back pain is much improved and is resting well, having no shortness of breath. OBJECTIVE: VITAL SIGNS: Show temperature is 97.2, pulse 82, respirations 18, O2 sats 97% on room air, blood pressure is 98/51. LUNGS: Clear. CARDIAC: Regular rhythm. BACK: Shows minimal tenderness to palpation of the lumbar spine. ASSESSMENT: 1. Resolving burst fracture with decreased pain. 2. Stable syndrome of inappropriate antidiuretic hormone. 3. Stable coronary artery disease. 4. Improving congestive heart failure with decreased BNP. 5. Improving deconditioning. PLAN: 1. Continue PT/OT. 2. Continue TLSO brace. 3. Continue fluid restriction and furosemide and repeat laboratories this weekend. Job ID: [id number]
--- NOTE | 2019-07-09 09:09 | PRG ---
DATE OF SERVICE: 07/08/2019 SUBJECTIVE: The patient feels well, sitting in bed, watching TV, still slightly confused, but in no distress. Oriented and lucid and recognizes provider. Denies any chest pain, shortness of breath, or abdominal pain. Did not have therapy today. OBJECTIVE: VITAL SIGNS: Shows his temperature is 98, pulse 73, respirations 16, O2 saturations 97% on room air, and blood pressure 132/65. LUNGS: Clear. CARDIAC: Regular rhythm. ABDOMEN: Soft and nontender. BACK: Shows minimal tenderness to palpation. ASSESSMENT: 1. Resolving burst fracture of L2. 2. 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 3. Stable coronary artery disease. 4. Improving congestive heart failure. 5. Improving deconditioning. 6. Stable mild dementia. PLAN: 1. Repeat BMP and BNP in the a.m. 2. Continue TLSO brace when out of bed. 3. Continue home medications. 4. Restart PT/OT tomorrow. Job ID: [id number]
[2019-07-09 10:36] LABS: Anion Gap 14 mmol/L (10-20); BUN (Urea Nitrogen) 16 mg/dL (8.4-25.7); Calc. Creatinine Clearance 67 mL/min (70-130); Calcium 8.5 mg/dL (7.8-10.44); Carbon Dioxide 22 mmol/L (23-31); Chloride 93 mmol/L (98-107); Estimated GFR-MDRD Greater than 90; Glucose 144 mg/dL (83-110); Potassium 3.9 mmol/L (3.5-5.1); Sodium 125 mmol/L (136-145)
[2019-07-09] MEDS: Simvastatin 40 MG TAB PO SCH (20:32)
[2019-07-09] MEDS: Melatonin 3 MG TAB PO SCH (20:32)
--- NOTE | 2019-07-09 21:34 | PRG ---
DATE OF SERVICE: 07/09/[address] Perez Nichols. SUBJECTIVE: The patient feels well, lying in bed, is ready for more therapy. Denying much of back pain or shortness of breath. OBJECTIVE: VITAL SIGNS: Shows temperature 96.6, pulse 82, respirations 20, O2 sats 97% on room air, blood pressure 98/55. LUNGS: Clear. CARDIAC: Shows irregularly irregular rhythm. ABDOMEN: Soft and nontender. SKIN/EXTREMITIES: No edema, clubbing, or cyanosis. LABORATORY DATA: Sodium is 125, potassium 3.9, chloride 93, bicarb 22, BUN 16, creatinine 0.7. BNP has improved even further to 190. ASSESSMENT: 1. Resolving burst fracture. 2. Stable syndrome of inappropriate antidiuretic hormone. 3. Stable coronary artery disease. 4. Improving congestive heart failure. 5. Stable dementia. PLAN: Job ID: [id number]
[2019-07-10] MEDS: Clopidogrel Bisulfate 75 MG TAB PO SCH (09:13)
[2019-07-10] MEDS: Metoprolol Tartrate 50 MG TAB PO SCH ×2 (09:13→19:35)
[2019-07-10] MEDS: Calcium Carbonate 500 MG TAB PO SCH (09:13)
[2019-07-10] MEDS: Furosemide 40 MG TAB PO SCH (09:14)
[2019-07-10] MEDS: Allopurinol 100 MG TAB PO SCH (09:14)
[2019-07-10] MEDS: Aspirin 81 mg Enteric Coated Tablet PO SCH (09:14)
[2019-07-10] MEDS: Lactinex Tablet PO SCH (09:14)
[2019-07-10] MEDS: Tamsulosin HCl 0.4 MG CAP PO SCH (09:14)
--- NOTE | 2019-07-10 18:59 | PRG ---
DATE OF SERVICE: 07/10/2019 SUBJECTIVE: Mr. Andrew is a very pleasant 89-year-old white male, who had a lumbar compression fracture after falling. He had rhabdomyolysis. He was admitted to [facility], stabilized, and transferred to [facility]. Developed some chest pain, transferred back to [facility], was found to have significant GERD. He was transferred to [facility] for physical therapy and occupational therapy. He is actually doing very well. He is walking much better and his anticipated discharge date will be Wednesday. OBJECTIVE: VITAL SIGNS: Reveal blood pressure this morning 127/60, pulse 69 to 76, respirations 18, O2 saturation 95% to 97% on room air, T-max 98.2. GENERAL: This is a well-developed, well-nourished, very pleasant 89-year-old white male, in no apparent distress at this time. HEENT: Normocephalic and nontraumatic cranium. Pupils are equal, round, and reactive. Extraocular movements are intact. Nose and throat are slightly dry. NECK: Supple without masses, nodes, or bruits. CHEST: Clear to auscultation. No rales. No rhonchi. No wheezes are heard. HEART: Reveals a regular rate and rhythm without murmurs, gallops, or rubs. ABDOMEN: Soft, nontender without organomegaly. Normal bowel sounds are noted. No rebound or guarding is noted. : Deferred. EXTREMITIES: Reveal no clubbing, cyanosis, or edema. Just generalized weakness. NEUROLOGIC: The patient continues to gradually get stronger daily. ASSESSMENT: 1. Chronic syndrome of inappropriate ADH with last sodium yesterday of 125. 2. Coronary artery disease with previous/no pulmonary edema with a BNP down to 190.7. 3. Recent burst fracture at L2. 4. Hyperlipidemia. 5. Hyperuricemia. 6. Mitral regurgitation. 7. Benign prostatic hypertrophy. 8. Generalized weakness. PLAN: 1. Continue to discharge planning for Wednesday. 2. Continue to wear TLSO brace and hopefully we can get it cut out so it does not impede up against neck anymore. 3. Continue fluid restriction. 4. Continue Lasix 40 a day. 5. Continue present medications. 6. Stress ulcer prophylaxis. 7. Decubitus precautions. 8. Continue to encourage the patient to eat well. 9. Continue physical therapy and occupational therapy. Job ID: [id number]
[2019-07-10] MEDS: Simvastatin 40 MG TAB PO SCH (19:34)
[2019-07-10] MEDS: Melatonin 3 MG TAB PO SCH (19:34)
[2019-07-11] MEDS: Aspirin 81 mg Enteric Coated Tablet PO SCH (08:53)
[2019-07-11] MEDS: Calcium Carbonate 500 MG TAB PO SCH (08:53)
[2019-07-11] MEDS: Allopurinol 100 MG TAB PO SCH (08:53)
[2019-07-11] MEDS: Furosemide 40 MG TAB PO SCH (08:55)
[2019-07-11] MEDS: Clopidogrel Bisulfate 75 MG TAB PO SCH (08:55)
[2019-07-11] MEDS: Lactinex Tablet PO SCH (08:55)
[2019-07-11] MEDS: Tamsulosin HCl 0.4 MG CAP PO SCH (08:55)
[2019-07-11] MEDS: Metoprolol Tartrate 50 MG TAB PO SCH ×2 (08:55→19:57)
[2019-07-11] MEDS: Melatonin 3 MG TAB PO SCH (19:57)
[2019-07-11] MEDS: Simvastatin 40 MG TAB PO SCH (19:57)
--- NOTE | 2019-07-11 22:43 | PRG ---
DATE OF SERVICE: 07/11/2019 SUBJECTIVE: Mr. Andrew is a very pleasant 89-year-old white male, who had a lumbar compression fracture after falling. He was admitted to [facility], stabilized, and transferred to [facility], but did poorly there. Developed some chest pain, transferred back to [facility], was found to have significant GERD. He was transferred to [facility] for PT and OT. He has actually done very well here. He is doing so well. He is scheduled for discharge on Wednesday. OBJECTIVE: VITAL SIGNS: Today reveal blood pressure 125/59, pulse 75 to 89, respirations 18 to 20, O2 saturations 94% to 98% on room air, T-max 97.6. GENERAL: This is a well-developed, well-nourished, pleasant 89-year-old white male, in no apparent distress at this time. HEENT: Reveals normocephalic and nontraumatic cranium. Pupils are equally round and reactive. Extraocular movements are intact. Nose and throat are slightly dry. NECK: Supple without masses, nodes, or bruits. CHEST: Clear to auscultation. No rales, rhonchi, wheezes, or cough is noted. HEART: Reveals a regular rate and rhythm without murmurs, gallops, or rubs. ABDOMEN: Soft, nontender without organomegaly. Normal bowel sounds are noted in all 4 quadrants. No rebound or guarding is noted. : Deferred. EXTREMITIES: Reveal no clubbing or cyanosis. Just generalized weakness. The patient is walking 2 laps around the nurse's station now with much improved balance and stamina. ASSESSMENT: 1. Chronic syndrome of inappropriate ADH with last sodium 125. 2. Coronary artery disease previous with no pulmonary edema. The patient's BNP is down to 190. 3. Recent burst fracture at L2. 4. Hyperlipidemia. 5. Hyperuricemia. 6. Mitral regurgitation. 7. Benign prostatic hyperplasia. 8. Generalized weakness. PLAN: 1. Discharge planning scheduled for Wednesday. 2. Continue to wear TLSO brace at all times when he out of bed. 3. Continue fluid restriction. 4. Continue Lasix 40 a day. 5. Continue salt tablets. 6. Continue present medications. 7. Stress ulcer prophylaxis. 8. Decubitus precautions. 9. Continue to encourage the patient to eat well. 10. Continue physical therapy and occupational therapy. Job ID: [id number]
[2019-07-12] MEDS: Furosemide 40 MG TAB PO SCH (08:08)
[2019-07-12] MEDS: Calcium Carbonate 500 MG TAB PO SCH (08:08)
[2019-07-12] MEDS: Allopurinol 100 MG TAB PO SCH (08:09)
[2019-07-12] MEDS: Aspirin 81 mg Enteric Coated Tablet PO SCH (08:09)
[2019-07-12] MEDS: Clopidogrel Bisulfate 75 MG TAB PO SCH (08:09)
[2019-07-12] MEDS: Tamsulosin HCl 0.4 MG CAP PO SCH (08:09)
[2019-07-12] MEDS: Lactinex Tablet PO SCH (08:09)
[2019-07-12] MEDS: Metoprolol Tartrate 50 MG TAB PO SCH ×2 (08:09→19:43)
--- NOTE | 2019-07-12 17:00 | PRG ---
DATE OF SERVICE: 07/12/2019 SUBJECTIVE: Mr. Andrew is a very pleasant 89-year-old white male. Unfortunately, he fell and suffered the lumbar compression fracture. He was seen at [facility], admitted and stabilized. He was transferred to [facility] for several days, but did very poorly there. Did develop some chest pain, transferred back to [facility], was found to have significant GERD. He was transferred to [facility] for PT and OT and has actually done very well. Today, he walked and then, he went to the gym and worked out until he is exhausted. He states he is doing a little bit more exercise every day. He is doing very well. We did discuss him being discharged on Wednesday afternoon. OBJECTIVE: VITAL SIGNS: Today reveal; blood pressure 149/66 to 150/68, pulse 75 to 89, respirations 16 to 18, O2 saturation 95% to 98% on room air, and T-max 97.6. GENERAL: This is a well-developed, well-nourished, pleasant 89-year-old white male, who states he is doing well and he continue to working really hard until he is exhausted. HEENT: Reveals normocephalic and nontraumatic cranium. Pupils are equal, round, and reactive. Extraocular movements are intact. Nose and throat are moist today. NECK: Supple without masses, nodes, or bruits. CHEST: Clear to auscultation. No rales, rhonchi, wheezes, or cough is noted. HEART: Reveals a regular rate and rhythm without murmurs, gallops, or rubs. ABDOMEN: Soft and nontender without organomegaly. Normal bowel sounds are noted in all 4 quadrants. No rebound or guarding is noted. : Deferred. EXTREMITIES: Reveal no clubbing, cyanosis, or edema. Just continued generalized weakness, which is improving. ASSESSMENT: 1. 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 2. Coronary artery disease previously with no pulmonary edema. 3. The patient's last BNP was down to 190. 4. Recent burst fracture, L2. 5. Hyperlipidemia. 6. Hyperuricemia. 7. Mitral regurgitation. 8. Benign prostatic hyperplasia. 9. Generalized weakness. PLAN: 1. Discharge planning is scheduled for Wednesday. 2. Continue to wear TLSO brace at all times when he is out of bed. 3. Fluid restriction. 4. Lasix 40 mg a day. 5. Continue salt tablets. 6. Continue present medications. 7. Stress ulcer prophylaxis. 8. Decubitus precautions. 9. Continue to encourage the patient to eat well. 10. Continue PT and OT. Job ID: [id number]
[2019-07-12] MEDS: Simvastatin 40 MG TAB PO SCH (19:43)
[2019-07-12] MEDS: Melatonin 3 MG TAB PO SCH (19:44)
[2019-07-13] MEDS: Allopurinol 100 MG TAB PO SCH (08:02)
[2019-07-13] MEDS: Calcium Carbonate 500 MG TAB PO SCH (08:02)
[2019-07-13] MEDS: Furosemide 40 MG TAB PO SCH (08:02)
[2019-07-13] MEDS: Aspirin 81 mg Enteric Coated Tablet PO SCH (08:02)
[2019-07-13] MEDS: Lactinex Tablet PO SCH (08:03)
[2019-07-13] MEDS: Clopidogrel Bisulfate 75 MG TAB PO SCH (08:03)
[2019-07-13] MEDS: Metoprolol Tartrate 50 MG TAB PO SCH ×2 (08:03→20:17)
[2019-07-13] MEDS: Tamsulosin HCl 0.4 MG CAP PO SCH (08:03)
[2019-07-13] MEDS: Melatonin 3 MG TAB PO SCH (20:16)
[2019-07-13] MEDS: Simvastatin 40 MG TAB PO SCH (20:17)
--- NOTE | 2019-07-13 21:15 | PRG ---
DATE OF SERVICE: 07/13/2019 SUBJECTIVE: Mr. Andrew is a very pleasant 89-year-old white male. He unfortunately fell and suffered early lumbar compression fracture. He is admitted to [facility], stabilized, and transferred to [facility]. He was here several days, but did very poorly and developed chest pain. He was transferred back to [facility], where he was found to have significant GERD. At this time, he was transferred to [facility] for physical therapy, occupational therapy, and actually has done very well. The patient states he continues to walk and then they will bring him to the gym where he would do lots of exercises until he is exhausted. His balance is much improved and he is doing much better. He is supposed to be discharged tomorrow afternoon. We did talk about him continuing therapy even when he gets home. OBJECTIVE: VITAL SIGNS: Today reveal blood pressure slightly low this morning at 91/50, pulse 82 to 83, respirations 18, O2 saturation 96% on room air, T-max 97.7. GENERAL: This is a well-developed, well-nourished, very pleasant 89-year-old white male, in no apparent distress at this time. HEENT: Normocephalic and nontraumatic cranium. The pupils are equal, round, and reactive. Extraocular movements are intact. Nose and throat are slightly dry. NECK: Supple without masses, nodes, or bruits. CHEST: Clear to auscultation. No rales, rhonchi, wheezes are heard. HEART: Reveals a regular rate and rhythm without murmurs, gallops, or rubs. ABDOMEN: Soft, nontender without organomegaly. Normal bowel sounds are noted in all 4 quadrants. No rebound or guarding is noted. : Deferred. EXTREMITIES: Reveal no clubbing, cyanosis, or edema. The patient is improving with his strength and stamina. ASSESSMENT: 1. Chronic syndrome of inappropriate ADH secretions with the last sodium at 125. 2. Coronary artery disease previously with no pulmonary edema. 3. The patient's last BNP was down to 190. 4. Recent burst fracture at L2. 5. Hyperlipidemia. 6. Hyperuricemia. 7. Mitral regurgitation. 8. Benign prostatic hyperplasia. 9. Generalized weakness. PLAN: 1. We will do labs tomorrow morning. 2. We anticipate discharge tomorrow afternoon to his daughter named, Jt. 3. Continue to wear TLSO brace at all times when he is out of bed. 4. Fluid restriction. 5. Continue Lasix 40 every day. 6. Continue salt tablets. 7. Continue present medications. 8. Stress ulcer prophylaxis. 9. Decubitus precautions. 10. Continue to encourage the patient to eat well. 11. Continue physical therapy and occupational therapy as outpatient. 12. Anticipate discharge tomorrow. Job ID: [id number]
[2019-07-14 03:33] VITALS: BMI 19.3
[2019-07-14 05:59] LABS: #Basophils 0.1 thou/uL (0.0-0.2); #Eosinphils 0.1 thou/uL (0.0-0.7); #Monocytes 0.6 thou/uL (0.11-0.59); #Neutrophils 3.6 thou/uL (1.40-6.50); %Eosinophils 2.1 % (0.0-10.0); %Lymphocytes 18.9 % (21.0-51.0); %Monocytes 10.5 % (0.0-10.0); %Neutrophils 66.5 % (42.0-75.0); Hemoglobin 10.3 g/dL (14.0-18.0); Mean Corpuscular HGB CONC 33.4 g/dL (32.0-36.0); Mean Corpuscular Hemoglobin 29.1 pg (27.0-31.0); Mean Corpuscular Volume 87.1 fL (78.0-98.0); Mean Platelet Volume 7.7 fL (7.4-10.4); Platelet Count 230 thou/uL (130-400); RBC Distribution Width 12.5 % (11.5-14.5); Red Blood Cell (RBC) Count 3.53 mill/uL (4.70-6.10); White Blood Cell (WBC) Count 5.4 thou/uL (4.8-10.8)
[2019-07-14 06:08] LABS: ALT (SGPT) 14 U/L (8-55); AST (SGOT) 14 U/L (5-34); Albumin 3.6 g/dL (3.4-4.8); Alkaline Phosphatase 95 U/L (40-110); Anion Gap 13 mmol/L (10-20); BUN (Urea Nitrogen) 16 mg/dL (8.4-25.7); Bilirubin, Total 0.6 mg/dL (0.2-1.2); Calc. Creatinine Clearance 68 mL/min (70-130); Calcium 8.8 mg/dL (7.8-10.44); Carbon Dioxide 24 mmol/L (23-31); Chloride 95 mmol/L (98-107); Estimated GFR-MDRD Greater than 90; Globulin 2.5 g/dL (2.4-3.5); Glucose 101 mg/dL (83-110); Potassium 4.2 mmol/L (3.5-5.1); Protein, Total 6.1 g/dL (5.8-8.1); Sodium 128 mmol/L (136-145)
[2019-07-14 07:30] VITALS: BP 144/68; TEMP 98
[2019-07-14] MEDS: Metoprolol Tartrate 50 MG TAB PO SCH (10:27)
[2019-07-14] MEDS: Lactinex Tablet PO SCH (10:27)
[2019-07-14] MEDS: Aspirin 81 mg Enteric Coated Tablet PO SCH (10:27)
[2019-07-14] MEDS: Clopidogrel Bisulfate 75 MG TAB PO SCH (10:28)
[2019-07-14] MEDS: Tamsulosin HCl 0.4 MG CAP PO SCH (10:28)
[2019-07-14] MEDS: Calcium Carbonate 500 MG TAB PO SCH (10:28)
[2019-07-14] MEDS: Furosemide 40 MG TAB PO SCH (10:28)
[2019-07-14] MEDS: Allopurinol 100 MG TAB PO SCH (10:28)
--- NOTE | 2019-07-14 15:28 | DIS ---
DATE OF ADMISSION: 06/21/2019 DATE OF DISCHARGE: 07/14/2019 HISTORY OF PRESENT ILLNESS: Mr. Andrew is a very pleasant 89-year-old white male who suffered a lumbar compression fracture. He was admitted to [facility], stabilized and transferred to [facility]. He was there for several days, but did poorly, developed a lot of chest pain. He was transferred back to [facility], after cardiac evaluation was found only to have significant GERD. He was transferred then to [facility] for physical therapy, occupational therapy to be closer to home. The patient states he has actually done very well and is ready for discharge today. He has actually done exceedingly well and continues to do his exercises and walk. His balance is much improved and he will be going home with pretty much 24-hour care. He will have home health through [facility] and they will come and continue his physical therapy and occupational therapy. Vital signs today reveal blood pressure last night was 118/58, this morning is 144/68. Pulse 76 to 90, respirations 18 to 20. O2 saturation 96% to 97% on room air T-max 98.0. Laboratories this morning reveal WBC is 5300 with a hemoglobin 10.3, hematocrit 30.8. Platelet count is 230,000. Sodium today is 128, which continues to gradually improve. Potassium 4.2, chloride 95, carbon dioxide 24 with a BUN of 16, creatinine 0.69, and estimated GFR greater than 90. His sugar this morning fasting was 100. His BNP this morning was 143, which is low as it has been. PHYSICAL EXAMINATION: GENERAL: This is a well-developed, well-nourished, very pleasant 89-year-old white male, in no apparent distress and ready to be discharged this afternoon. HEENT: Normocephalic and nontraumatic cranium. Pupils are equal, round, and reactive. Extraocular movements are intact. Nose and throat are slightly dry. NECK: Supple without masses, nodes, or bruits. CHEST: Clear to auscultation. No rales, rhonchi, wheezes are heard. HEART: Reveals a regular rate and rhythm without murmurs, gallops, or rubs. ABDOMEN: Soft, nontender without organomegaly. Normal bowel sounds are noted. No rebound or guarding is noted : Deferred. EXTREMITIES: No clubbing, cyanosis, or edema. The patient continues to improve with his stamina, strength, and balance. ASSESSMENT: 1. Burst fracture at L2. 2. Chronic syndrome of inappropriate ADH with last sodium this morning of 128. 3. Coronary artery disease, previously with no pulmonary edema. 4. Last BNP was 149. 5. Hyperlipidemia. 6. Hyperuricemia. 7. Mitral regurgitation. 8. Benign prostatic hypertrophy with hyperplasia. 9. Generalized weakness. PLAN: 1. The patient is to be discharged this afternoon. 2. The patient will continue with Home Health for physical therapy and occupational therapy. 3. Continue with 1200 mL fluid restriction. 4. Continue Lasix 40 mg a day. 5. Continue salt pills. 6. Continue present medications. 7. Continue to encourage the patient to eat well when he gets home. 8. Anticipate discharge this afternoon. DISCHARGE MEDICATIONS: 1. Tylenol 500 mg q.6 p.r.n. 2. Acidophilus one tablet which is an [id number] medication daily. 3. Maalox Plus 30 mL p.r.n. heartburn and indigestion. 4. Allopurinol 300 mg daily. 5. Aspirin 81 mg daily, always with food. 6. Calcium carbonate which is Os-Sandeep 600 mg each morning with a meal. 7. Plavix 75 mg a day. 8. Lasix 40 mg a day. 9. Atrovent if needed p.r.n. wheezing. 10. Ativan p.r.n. anxiety which the patient I am sure does not need anymore, so we will not give him prescription for that. 11. Milk of magnesia [id number] p.r.n. constipation. 12. Melatonin 9 mg at bedtime or 10 mg at bedtime for insomnia. 13. Lopressor 50 mg twice a day. 14. Pantoprazole, which is Protonix 40 mg a day. 15. Zocor 80 mg a day. 16. Flomax or tamsulosin 0.4 mg daily. 17. Throat lozenges p.r.n. The patient is off his salt pills at this time. The patient will follow up with me within the next 7-14 days. Job ID: [id number]
--- NOTE | 2019-07-17 03:50 | PQF ---
[employer] T[employer] Crystal Reports Winform [facility]erBENSON HOSPITAL Donna MAGDALENO MD [id number] CLINICAL DOCUMENTATION CLARIFICATION FORM: POST DISCHARGE Addendum to original discharge summary date: ____ Late entry note date: __ DATE: 07/17/2019 ATTN:Donna FORD MD Please exercise your independent, professional judgment in responding to the clarification form. Clinical indicators are provided on the bottom of this form for your review Please check appropriate box(s): HEART FAILURE: A. TYPE: [ ] Systolic / HFrEF [ ] Diastolic / HFpEF [ ] Combined Systolic / Diastolic B. ACUITY [ ] Acute [ ] Acute on Chronic [ ] Chronic [ ] Other diagnosis [ ] Unable to determine In addition, please specify: Present on Admission (POA): [ ] Yes [ ] No [ ] Unable to determine For continuity of documentation, please document condition throughout progress notes and discharge summary. Thank You. CLINICAL INDICATORS - SIGNS / SYMPTOMS / LABS BNP level 646 on 06/23, 270.1 on 06/25 , 265.7 on 07/04 and 143.4 on 07/14 - Documented in Laboratory Elevated BNP now on fluid restriction and furosemide with no signs and symptoms at rest - Documented in PNs on 06/24 by Kiesha Jara Improving Congestive heart failure with decreased BNP - Documented in PNs on by Kiesha Jara RISKS: CAD Recent flash Pulmonary edema - Documented in H&P on 06/21 by Magdalena Lara TREATMENTS: Furosemide[Lasix] 40 mg daily- Documented in Medication report Basement profile to be done tomorrow and BNP to be repeat tomorrow - Documented in PNs on 06/24 by Kiesha Jara Continue fluid restriction and Lasix 40 daily - Documented in PNs on 06/24 by Kiesha Jara [employer] Tender Crystal Reports Winform Viewer (This form is maintained as a part of the permanent medical record) 2014 [employer] All Rights Reserved [email or web address] [not provided] [email or web address]
== END 2019-07-14 17:15 | disposition home health service (06) | DRG 560 ==
LOC: NAV ACUTE 16:43
PROVIDERS: ADMIT Family Medicine; ATTEND Family Medicine
DX: S32.029D Unspecified fracture of second lumbar vertebra, subsequent encounter for fracture with routine healing (principal); E22.2 Syndrome of inappropriate secretion of antidiuretic hormone; K21.9 Gastro-esophageal reflux disease without esophagitis; I25.10 Atherosclerotic heart disease of native coronary artery without angina pectoris; Z95.1 Presence of aortocoronary bypass graft; E78.5 Hyperlipidemia, unspecified; N40.0 Benign prostatic hyperplasia without lower urinary tract symptoms; Z90.89 Acquired absence of other organs; Z79.82 Long term (current) use of aspirin; Z79.02 Long term (current) use of antithrombotics/antiplatelets; Z79.899 Other long term (current) drug therapy; G89.29 Other chronic pain; E79.0 Hyperuricemia without signs of inflammatory arthritis and tophaceous disease; R11.10 Vomiting, unspecified; R53.1 Weakness; W01.0XXD Fall on same level from slipping, tripping and stumbling without subsequent striking against object, subsequent encounter; G47.00 Insomnia, unspecified; M19.91 Primary osteoarthritis, unspecified site; I11.0 Hypertensive heart disease with heart failure; I50.9 Heart failure, unspecified; F03.90 Unspecified dementia, unspecified severity, without behavioral disturbance, psychotic disturbance, mood disturbance, and anxiety
CPT/HCPCS: 36415; 80048; 80053; 83880; 84134; 85025